=== PATIENT | female | born 1975 | race Caucasian/White ===

== ENCOUNTER 2018-02-04 02:17 | Emergency (ER) | payer BC, OTHER ==
[2018-02-04] MEDS: ALBUTEROL 0.5% (NEB) 2.5 MG/0.5 ML AMP INH (02:32)
[2018-02-04] MEDS: IPRATROPIUM (NEB) 0.5 MG/2.5 ML AMP INH (02:32)
[2018-02-04] MEDS: DEXAMETHASONE 10 MG/ML 1 ML INJ IM (03:04)
== END 2018-02-04 03:54 | disposition home or self-care (01) ==
LOC: E/R 02:17
DX: J45.901 Unspecified asthma with (acute) exacerbation (principal)
CPT/HCPCS: 94644; 96372; 99284-25